=== PATIENT | male | born 1960 | race Caucasian/White ===

== ENCOUNTER 2019-02-13 00:29 | Emergency (ER) | payer BC ==
--- NOTE | 2019-02-13 01:40 | EDM.PDOC ---
ED HPI GENERAL MEDICAL PROBLEM - General Chief Complaint: Abdominal Pain Stated Complaint: ABD PAIN Time Seen by Provider: 02/13/19 01:25 Source of Information: Reports: Patient, RN History Limitations: Reports: Other (no old records) - History of Present Illness INITIAL COMMENTS - FREE TEXT/NARRATIVE: 58 yo male presents with a couple days of progressive R low back pain that now includes the R mid abdominal area. Pain comes and goes. No hematuria, fever, nausea, diaphoresis, or change in bowels. No hx of kidney stones. Does have a pHx of a bicuspid aortic valve. He has a pHx of low back pain, but this feels different. No increase in pain with movement. He took ibuprofen 800 mg po before coming in tonight and has some relief from this. Onset: Gradual Onset Date: 02/10/19 Duration: Day(s):, Getting Worse Location: Reports: Abdomen (R low to mid abdomen. 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 Right Back Pain Score (Numeric/FACES): 7 - Related Data Allergies Allergy/AdvReac Type Severity Reaction Status Date / Time No Known Allergies Allergy Verified 02/13/19 01:19 Home Meds: Home Meds Doxazosin [Cardura] 4 mg PO DAILY 02/13/19 [History] atorvaSTATin [Lipitor] mg PO DAILY 02/13/19 [History] Past Medical History Cardiovascular History: Reports: Other (See Below) Other Cardiovascular History: AORTIC STENOSIS - Past Surgical History Head Surgeries/Procedures: Reports: None Cardiovascular Surgical History: Reports: None Social & Family History - Family History Family Medical History: Noncontributory - Tobacco Use Smoking Status *Q: Never Smoker Second Hand Smoke Exposure: No - Caffeine Use Caffeine Use: Reports: Coffee, Soda, Tea - Recreational Drug Use Recreational Drug Use: No ED ROS GENERAL - Review of Systems Review Of Systems: See Below Constitutional: Reports: No Symptoms HEENT: Reports: No Symptoms Respiratory: Reports: No Symptoms Cardiovascular: Reports: No Symptoms GI/Abdominal: Reports: Abdominal Pain (Feels vague pain to the R mid abdomen, no increase in pain with pushing on this area. ). Denies: Black Stool, Bloody Stool, Constipation, Diarrhea, Distension, Flatus, Hematemesis, Melena, Nausea, Vomiting : Reports: No Symptoms. Denies: Hematuria Musculoskeletal: Reports: No Symptoms Skin: Reports: No Symptoms Neurological: Reports: No Symptoms Psychiatric: Reports: No Symptoms ED EXAM,LOWER BACK PAIN/INJURY - Physical Exam Exam: See Below Exam Limited By: No Limitations General Appearance: Alert, WD/WN, No Apparent Distress Eye Exam: Bilateral Eye: Normal Inspection Ears: Normal External Exam, Normal Canal, Hearing Grossly Normal, Normal TMs Nose: Normal Inspection, No Blood Throat/Mouth: Normal Inspection, Normal Lips, Normal Oropharynx, Normal Voice, No Airway Compromise Head: Atraumatic, Normocephalic Neck: Normal Inspection Respiratory/Chest: No Respiratory Distress, Lungs Clear, Normal Breath Sounds, No Accessory Muscle Use Cardiovascular: Regular Rate, Rhythm, No Edema GI/Abdominal: Normal Bowel Sounds, Soft, Non-Tender, No Distention. No: Distended, Guarding, Rigid, Rebound, Tender, Hernia, Mass Back Exam: Normal Inspection. No: CVA Tenderness (R), CVA Tenderness (L) Extremities: Normal Inspection, Normal Range of Motion, Non-Tender, No Pedal Edema Neurological: Alert, Normal Mood/Affect, CN II-XII Intact, No Motor/Sensory Deficits, Oriented x 3 Psychiatric: Normal Affect, Normal Mood Skin Exam: Warm, Dry, Intact, Normal Color, No Rash Course - Vital Signs Last Recorded V/S: Last Vital Signs Temp 35.5 C 02/13/19 01:17 Pulse 50 L 02/13/19 01:17 Resp 16 02/13/19 01:17 BP 140/75 02/13/19 01:17 Pulse Ox 98 02/13/19 01:17 - Orders/Labs/Meds Labs: Laboratory Tests 02/13/19 Range/Units 01:43 Urine Color Yellow (YELLOW) Urine Appearance Clear (CLEAR) Urine pH 6.0 (5.0-8.0) Ur Specific [place] 1.025 (1.008-1.030) Urine Protein Negative (NEGATIVE) mg/dL Urine Glucose (UA) Negative (NEGATIVE) mg/dL Urine Ketones Negative (NEGATIVE) mg/dL Urine Occult Blood Negative (NEGATIVE) Urine Nitrite Negative (NEGATIVE) Urine Bilirubin Negative (NEGATIVE) Urine Urobilinogen 0.2 (0.2-1.0) EU/dL Ur Leukocyte Esterase Negative (NEGATIVE) Urine RBC 0-5 (0-5) Urine WBC 0-5 (0-5) Ur Epithelial Cells Few Amorphous Sediment Not seen Urine Bacteria Few Urine Mucus Few - Radiology Interpretation Free Text/Narrative:: CT abd/pelvis with no contrast-neg CT Results Date: 02/13/19 Departure - Departure Time of Disposition: 03:04 Disposition: Home, Self-Care 01 Condition: Good Clinical Impression: Low back pain Qualifiers: Chronicity: unspecified Back pain laterality: right Sciatica presence: without sciatica Qualified Code(s): M54.5 - Low back pain - Discharge Information *PRESCRIPTION DRUG MONITORING PROGRAM REVIEWED*: No *COPY OF PRESCRIPTION DRUG MONITORING REPORT IN PATIENT CONCEPCIÓN: No Referrals: PCP,None [Primary Care Provider] - Forms: ED Department Discharge Additional Instructions: Continue ibuprofen 600 mg every 6 hrs with food as needed. Add acetaminophen if additional pain relief is needed. Drink ample fluids. Recheck with your provider as needed, take your CT images along to your appt. Return here as needed.
--- NOTE | 2019-02-13 02:57 | CRLCT ---
INDICATION: Right flank pain TECHNIQUE: CT Abdomen and pelvis without i.v. contrast. Coronal and sagittal reformats were obtained. COMPARISON: None FINDINGS: Lower chest: Unremarkable. Calcifications of the aortic valve are noted. Liver: Unremarkable. Spleen: Unremarkable. Pancreas: Unremarkable. Gallbladder: Unremarkable. Kidney: Unremarkable. No kidney or ureteral stones or obstruction seen. Adrenal: Unremarkable. Bowel: There is a gasless density near the ileocecal valve without any apparent obstruction of the terminal ileum. This is most likely due to small bowel contents incompletely mixing with cecal stool. The appendix is normal in appearance and size. Vascular: Unremarkable. Lymph: Unremarkable. Peritoneum: Unremarkable. No pneumoperitoneum is seen. No significant ascites is noted. Pelvis: Moderate diffuse bladder wall thickening is suspected but difficult to confirm given the decompressed status. Ill-defined soft tissues present near the left inguinal canal which may be due to mesh plug or granulation tissue from prior herniorrhaphy. Soft tissue: Unremarkable. Bone: Bilateral chronic pars defects of L5 noted with no significant anterolisthesis of L5-S1 noted. IMPRESSIONS: 1. Calcifications of the aortic valve are noted. Correlation with physical exam is recommended to exclude aortic stenosis. 2. Moderate diffuse bladder wall thickening is suspected but difficult to confirm given the decompressed status. This may be due to chronic bladder outlet obstruction,urinary tract infection or cystitis. Dictated by Claudy Orr MD @ 02/13/2019 2:54:59 AM Please note that all CT scans at this facility use dose modulation, iterative reconstruction, and/or weight-based dosing when appropriate to reduce radiation dose to as low as reasonably achievable. Dictated by: Claudy Orr MD @ 02/13/2019 02:55:03 (Electronically Signed)
== END 2019-02-13 03:17 | disposition home or self-care (01) ==
LOC: JP.ED 00:29
DX: M54.5 Low back pain (principal); Z79.899 Other long term (current) drug therapy
CPT/HCPCS: 74176; 81001; 99284-25